=== PATIENT | female | born 1960 | race Caucasian/White ===

== ENCOUNTER 2022-03-28 17:29 | Emergency (ER) | payer OTHER ==
[~2022-03-28] VITALS: Ht 157.5 cm; Wt 90.7 kg
[2022-03-28 17:32] VITALS: BP 135/82
--- NOTE | 2022-03-28 17:37 | NUR ---
RD 232. SEQUENCE # [id number] TO BED 05 AT THIS TIME
--- NOTE | 2022-03-28 17:40 | NUR ---
ERMD AT BEDSIDE.
--- NOTE | 2022-03-28 17:45 | NUR ---
61 Y/O FEMALE BIBA FOR VAGINAL BLEEDING X 1 WEEK. DENIES ANY TRAUMA. PT STATES BLEEDING STARTED A TRICKLE AND HAS INCREASED TO A MODERATE AMOUNT IN THE LAST FEW DAYS. PT STATES THERE ARE NO BLOOD CLOTS. PT DENIES FEVER OR CHILLS. PT DENIES CHEST PAIN, SOB. BED LOCKED IN LOWEST POSITION, BED RAIL X1. PMHX: CVA, HLD, DM II
[2022-03-28 18:15] LABS: BASOPHILS # (AUTO) 0.1 K/uL (0.00-0.22); BASOPHILS % (AUTO) 0.6 % (0.0-2.0); EOSINOPHILS # (AUTO) 0.2 K/uL (0-0.4); EOSINOPHILS % (AUTO) 1.6 % (0.0-4.0); HEMATOCRIT 35.2 % (36-48); HEMOGLOBIN 11.3 g/dL (12.0-16.0); LYMPHOCYTES # (AUTO) 2.4 K/uL (2.5-16.5); LYMPHOCYTES % (AUTO) 19.2 % (20.5-51.1); MEAN CORPUSCULAR HEMOGLOBIN 28 pg (27-31); MEAN CORPUSCULAR HGB CONC 32 g/dL (33-37); MEAN CORPUSCULAR VOLUME 87.1 fL (80-94); MONOCYTES # (AUTO) 0.7 K/uL (0.8-1.0); MONOCYTES % (AUTO) 5.4 % (1.7-9.3); NEUTROPHILS # (AUTO) 9.2 K/uL (1.8-7.7); NEUTROPHILS % (AUTO) 73.2 % (42.2-75.2); PLATELET COUNT (AUTO) 360 K/uL (140-450); RED BLOOD CELL COUNT(AUTO) 4.05 MIL/uL (4.20-5.40); RED CELL DISTRIBUTION WIDTH 15.5 % (11.6-13.7); WHITE BLOOD COUNT (AUTO) 12.6 K/uL (4.8-10.8)
[2022-03-28 18:52] LABS: ALBUMIN 2.6 g/dL (3.4-5.0); ANION GAP 8.5 (8-16); CARBON DIOXIDE 29.5 mmol/L (21-32); CREATININE 1.9 mg/dL (0.6-1.3); TOTAL BILIRUBIN 0.2 mg/dL (0.0-1.0)
[2022-03-28 18:57] LABS: PROTHROMBIN TIME 10.4 secs (10.8-13.4)
--- NOTE | 2022-03-28 19:15 | NUR ---
Pt report given to JUDD OLIVEROS. Transfer of care at this time.
--- NOTE | 2022-03-28 20:30 | NUR ---
Female Automotive Service Technician accompanied female patient for Pelvic Exam.
--- NOTE | 2022-03-28 20:30 | NUR ---
URINE COLLECTED AND WALKED TO LAB
--- NOTE | 2022-03-28 20:40 | NUR ---
ATTEMPTED TO CALL BACK FAMILY X3, TO PROVIDE UPDATE. NO ANSWER AT THIS TIME
[2022-03-28 21:06] LABS: APPEARANCE,URINE CLEAR (CLEAR); BILIRUBIN,URINE NEGATIVE (NEGATIVE); BLOOD, URINE NEGATIVE (NEGATIVE); COLOR,URINE YELLOW (YELLOW); LEUKOCYTE ESTERASE ,URINE TRACE (NEGATIVE); NITRITE, URINE POSITIVE (NEGATIVE); PH,URINE 6.5 (5.0-9.0); UGLUCOSE 3+ (NEGATIVE)
[2022-03-28 21:07] LABS: RBC,URINE NONE SEEN /HPF (0-5); WBC,URINE 0-5 /HPF (0-5)
[2022-03-28] MEDS ORDERED: CEPH-588 PO (21:22)
--- NOTE | 2022-03-28 22:30 | NUR ---
SPOKE TO ROBBIE NURSE AT [facility]. SHE STATED THAT PATIENT IS ABLE TO COME BACK TO FACILITY PER FAMILY REQUEST. PATIETN FAMILY IS AWARE THAT THERE IS NO TRANSPORTATION BUT THEY ARE NOT WILLING TO WAIT TILL THE MORNING FOR TRANSPORTATION. [facility]NAHI FAMILY AWARE OF RISKS.
--- NOTE | 2022-03-28 22:50 | NUR ---
PROVIDED RED CARE AND CHANGED PATIENT. PROVIDED NEW GOWN AND SHEETS ALL NEEDS MET
--- NOTE | 2022-03-28 23:00 | NUR ---
SISTER AT BEDSIDE
[2022-03-28 23:03] VITALS: BP 135/82
--- NOTE | 2022-03-28 23:03 | NUR ---
Patient discharged with v/s stable. Written and verbal after care instructions given on UTI, and dysmenorrhea and explained. Patient alert, oriented and verbalized understanding of instructions. Wheel Chair Assisted with by caregiver. All questions addressed prior to discharge. ID band removed. Patient advised to follow up with PMD. Rx of Keflex given.
--- NOTE | 2022-03-28 23:32 | NUR ---
The patient's care was reviewed and supervised by Victoria Han RN.
== END 2022-03-28 23:03 | disposition home or self-care (01) ==
LOC: MED 17:29
DX: N94.6 Dysmenorrhea, unspecified (principal); Z86.73 Personal history of transient ischemic attack (TIA), and cerebral infarction without residual deficits; Z79.2 Long term (current) use of antibiotics
CPT/HCPCS: 36415; 80053; 81001; 85025; 85610; 99283